=== PATIENT | female | born 1985 | race Two or more races ===

== ENCOUNTER 2021-03-10 15:21 | Inpatient (IN) | payer BC, OTHER ==
[~2021-03-10] VITALS: Ht 162.6 cm; Wt 72.7 kg
[2021-03-10] MEDS ORDERED: SODIUM CITRATE/CITRIC ACID 15 ML UDC ONE (15:49)
[2021-03-10] MEDS ORDERED: METOCLOPRAMIDE 5 MG/ML, 2ML ONE (15:49)
[2021-03-10] MEDS ORDERED: PLEASE ENTER ALLERGIES MC SCH (16:00)
[2021-03-10] MEDS ORDERED: CEFAZOLIN PMX 1GM/50ML IVPB ONE (16:00)
[2021-03-10] MEDS ORDERED: PLEASE ENTER HEIGHT AND WEIGHT MC SCH (16:00)
[2021-03-10 16:19] LABS: BASOPHILS % (AUTO) 1 % (0-1); EOSINOPHILS % (AUTO) 1 % (1-7); LYMPHOCYTES % (AUTO) 16 % (22-44); MEAN CORPUSCULAR HEMOGLOBIN 30.8 pg (27.0-34.8); MEAN CORPUSCULAR HGB CONC 33.9 g/dL (32.4-35.8); MEAN PLATELET VOLUME 7.2 fL (7.4-10.4); MONOCYTES % (AUTO) 6 % (2-9); NEUTROPHILS % (AUTO) 77 % (42-75); PLATELET COUNT 272 x10^3/uL (130-400); RED BLOOD COUNT 3.99 x10^6/uL (3.82-5.3); RED CELL DISTRIBUTION WIDTH 13.7 % (9.6-15.2)
[2021-03-10] MEDS ORDERED: CEFAZOLIN PMX 1GM/50ML 50 ML IVPB ONE (16:30)
[2021-03-10] MEDS: LACTATED RINGERS 1,000 ML IV SCH ×2 (16:37→19:08)
[2021-03-10] MEDS ORDERED: SODIUM CITRATE/CITRIC ACID 30 ML UDC PO ONE (17:00)
[2021-03-10] MEDS ORDERED: METOCLOPRAMIDE 5 MG/ML, 2ML IV ONE (17:00)
[2021-03-10] MEDS ORDERED: AZITHROMYCIN 500 MG in SODIUM CHLORIDE 0.9% 250 ML IV ONE (17:00)
[2021-03-10] MEDS ORDERED: EPINEPHRINE 1 MG/ML, 1ML ONE (18:32)
[2021-03-10] MEDS ORDERED: EPHEDRINE 50 MG/ML, 1ML ONE (18:32)
[2021-03-10] MEDS ORDERED: INDOMETHACIN 50 MG CAPSULE ONE (18:52)
[2021-03-10] MEDS ORDERED: INDOMETHACIN 50 MG CAPSULE PO ONE (19:00)
== END 2021-03-10 22:43 | disposition home or self-care (01) | DRG 819 ==
LOC: LDOP 15:21 → LDIP 15:39
PROVIDERS: ADMIT Obstetrics & Gynecology Maternal & Fetal Medicine; ATTEND Obstetrics & Gynecology Maternal & Fetal Medicine
PROC: 0UVC7ZZ Restriction of Cervix, Via Natural or Artificial Opening (ICD-10-PCS; principal; 2021-03-10)
DX: O26.872 Cervical shortening, second trimester (principal); Z3A.20 20 weeks gestation of pregnancy; Z20.822 Contact with and (suspected) exposure to COVID-19
CPT/HCPCS: 36415; 85025; 86850; 86900; 87635; G0378; J0171; J0456; J0690; J2765; J7050; J7120